=== PATIENT | male | born 1965 | race Caucasian/White ===

== ENCOUNTER 2016-11-17 12:22 | Emergency (ER) | payer MEDICAID ==
[~2016-11-17] VITALS: Ht 167.6 cm; Wt 63.0 kg
[~2016-11-17 12:22] MED LIST: OMEP20CA9 PO; RANI150T9 PO; SUCR1TAB56 PO
[2016-11-17 12:34] VITALS: Ht 167.6 cm; Wt 63.0 kg
--- NOTE | 2016-11-17 14:23 | RADRPT ---
PROCEDURE: XR Chest. CLINICAL INDICATION: chest pain TECHNIQUE: Single frontal view of the chest was obtained COMPARISON: 03/21/2015 FINDINGS: The heart and mediastinum are within normal limits. The lungs are clear. There is no pleural effusion or pneumothorax. RPTAT: AA IMPRESSION: No acute disease. .Tim Oleary MD, MD Date Time Electronically viewed and signed by .Tim Oleary MD, on 11/17/2016 14:23 .S/
[2016-11-17 14:29] LABS: ADD SCAN DIFF NO
[2016-11-17 14:31] LABS: BASOPHIL # 0.1 10^3/ul (0.0-0.1); BASOPHILS % 0.5 % (0.0-2.0); EOSINOPHILS # 0.1 10^3/ul (0.0-0.5); HEMATOCRIT 46.5 % (42.0-52.0); HEMOGLOBIN 15.4 g/dl (14.0-18.0); LYMPHOCYTES # 2.5 10^3/ul (0.8-2.9); LYMPHOCYTES % 27.4 % (15.0-51.0); MEAN CORPUSCULAR HEMOGLOBIN 27.1 pg (29.0-33.0); MEAN CORPUSCULAR HGB CONC 33.1 g/dl (32.0-37.0); MEAN CORPUSCULAR VOLUME 81.9 fl (82.0-101.0); MEAN PLATELET VOLUME 11.2 fl (7.4-10.4); MONOCYTE # 0.5 10^3/ul (0.3-0.9); MONOCYTES % 5.4 % (0.0-11.0); NEUTROPHILS % 65.5 % (39.0-77.0); PLATELET COUNT 256 10^3/UL (140-415); RED BLOOD COUNT 5.68 10^6/ul (4.70-6.10); RED CELL DISTRIBUTION WIDTH 12.6 % (11.5-14.5); WHITE BLOOD COUNT 9.1 10^3/ul (4.8-10.8)
[2016-11-17 14:38] LABS: ADD UMIC NO; URINE BILIRUBIN (Dip) NEGATIVE (NEGATIVE); URINE BLOOD (Dip) NEGATIVE (NEGATIVE); URINE COLOR LT. YELLOW (YELLOW); URINE GLUCOSE (Dip) NEGATIVE (NEGATIVE); URINE KETONES (Dip) NEGATIVE (NEGATIVE); URINE LEUKOCYTE ESTERASE (Dip) NEGATIVE (NEGATIVE); URINE NITRITE (Dip) NEGATIVE (NEGATIVE); URINE TOTAL PROTEIN (Dip) NEGATIVE (NEGATIVE); URINE UROBILINOGEN (Dip) 0.2 E.U./dL (0.1-1.0)
[2016-11-17 14:41] LABS: ALBUMIN 4.9 g/dl (3.3-4.9)
[2016-11-17 14:42] LABS: POTASSIUM 4.1 mmol/L (3.5-5.1)
[2016-11-17 14:44] LABS: ALBUMIN/GLOBULIN RATIO 1.48; BILIRUBIN,INDIRECT 0.5 mg/dl (0-1.1); BILIRUBIN,TOTAL 0.5 mg/dl (0.2-1.3); CREATININE 0.81 mg/dl (0.61-1.24); TOTAL PROTEIN 8.2 g/dl (6.1-8.1)
[2016-11-17 14:45] LABS: CALCIUM 9.7 mg/dl (8.4-10.2)
[2016-11-17] MEDS ORDERED: SOD CHLORIDE 0.9% 100 ML ONE (15:31)
[2016-11-17] MEDS ORDERED: IOHEXOL 300MG/ML 150 ML BTL ONE (15:31)
--- NOTE | 2016-11-17 16:18 | RADRPT ---
PROCEDURE: CT Abdomen and pelvis with contrast. CLINICAL INDICATION: Lower abdominal pain. No appetite for 1 month. TECHNIQUE: CT scan of the abdomen and pelvis with contrast was performed on a multidetector high-r esolution CT scan. The patient was scanned following the uncomplicated intravenous administration o f 100 ml Omnipaque-300. Coronal and sagittal reformatted images were obtained from the axial source images. Standard CT of the abdomen pelvis with contrast protocols were performed. The total exam CTDI equals 5.83 mGy and the total exam DLP equals 315.23 mGy-cm. One or more of the following dose reduction techniques were used: - Automated exposure control. - Adjustment of the mA and/or kV according to patient size. Use of iterative reconstruction technique. COMPARISON: Abdominal ultrasound 03/21/2015 FINDINGS: The stomach is unremarkable. There are diffuse fluid filled prominent loops of small bowel with mil d wall thickening consistent with enteritis. The colon is unremarkable. The appendix is unremarkabl e. Negative for intra-abdominal free air, free fluid, abscesses or lymphadenopathy. The liver spleen pancreas adrenal glands and kidneys are normal in size configuration without focal lesions. No evidence of hydronephrosis bilaterally. The gallbladder is unremarkable. No evidence of biliary ductal dilation. The urinary bladder is unremarkable. The aorta is unremarkable. Sclerotic densities within the right left femoral heads are consistent w ith bone islands. There are degenerative changes involving the lower thoracic and lumbar spine. Th ere are no acute osseous findings are osteoblastic/osteolytic lesions. There is a 5.5 mm soft pulmo nary nodule in the posterior lateral left lower lobe that is nonspecific. A CT scan of the chest wi thout contrast may be helpful for further evaluation. Remainder the lung bases are unremarkable. IMPRESSION: 1. Diffuse fluid filled prominent loops of small bowel with mild wall thickening and rule out ente ritis. There is no bowel obstruction. No CT evidence of diverticulitis or appendicitis. 2. Negative for intra-abdominal free air, free fluid, abscesses or lymphadenopathy. 3. Non-flow calcified renal calculi or obstructive uropathy. 4. 5.5 mm soft pulmonary nodule in the posterior lateral left lower lobe that is nonspecific. A CT scan of the chest without contrast may be helpful for further evaluation. RPTAT:AAJJ Elena Ponce, Physician Date Time Electronically viewed and signed by Elena Ponce Physician on 11/17/2016 16:18 BM/
[2016-11-17] MEDS ORDERED: CIPR500T4 PO (16:24)
[2016-11-17] MEDS ORDERED: METR500T PO (16:24)
[2016-11-17] MEDS ORDERED: OMEP20CA16 PO (16:25)
--- NOTE | 2016-11-17 16:31 | ERD ---
ER Documentation Chief Complaint Date/Time DATE: 11/17/16 TIME: 16:27 Chief Complaint WEAKNESS X 1 MONTH, INSOMINA AND LOSS OF APPETITE HPI This 51-year-old male presents with sensation weakness for last month and possible weight loss for last 6 months. Seen here 5 months ago diagnosed with gastritis. He denies any vomiting or fevers or blood. He has decreased appetite. States that his loss possibly 50 pounds in the last 6 months. Review of the medical record shows that he is 4 kg less than he was 5 months ago. Denies any cough, sore throat, urinary complaints polyuria or polydipsia. ROS All systems reviewed and are negative except as per history of present illness. Medications Home Meds Active Scripts Omeprazole* (Omeprazole*) 20 Mg Capsule., 20 MG PO DAILY, #30 CAP Prov:DEMETRIA BOB MD 11/17/16 Ciprofloxacin Hcl* (Ciprofloxacin Hcl*) 500 Mg Tablet, 500 MG PO BID, #14 TAB Prov:DEMETRIA BOB MD 11/17/16 Metronidazole* (Flagyl*) 500 Mg Tablet, 500 MG PO BID for 7 Days, TAB Prov:DEMETRIA BOB MD 11/17/16 Sucralfate* (Carafate*) 1 Gm Tab, 1 GM PO QID, #30 TAB Prov:HERBERT NATARAJAN PA-C 03/21/15 Ranitidine Hcl* (Zantac*) 150 Mg Tablet, 150 MG PO BID Y for PAIN, #30 TAB Prov:HERBERT NATARAJAN PA-C 03/21/15 Omeprazole* (Prilosec*) 20 Mg Capsule., 20 MG PO BID, #30 CAP Prov:HERBERT NATARAJAN PA-C 03/21/15 Allergies Allergies: Coded Allergies: No Known Allergy (Unverified , 03/21/15) PMhx/Soc History of Surgery: No Anesthesia Reaction: No Hx Neurological Disorder: No Hx Respiratory Disorders: No Hx Cardiac Disorders: No Hx Psychiatric Problems: No Hx Miscellaneous Medical Probl: No Hx Alcohol Use: No Hx Substance Use: No Hx Tobacco Use: Yes Smoking Status: Current every day smoker Physical Exam Vitals Vital Signs Date Time Temp Pulse Resp B/P Pulse Ox O2 Delivery O2 Flow Rate FiO2 11/17/16 12:34 97.7 78 18 140/86 98 Physical Exam Const: [] Alert, slightly cachectic appearing Head: Atraumatic Eyes: Normal Conjunctiva ENT: Normal External Ears, Nose and Mouth. Neck: Full range of motion..~ No meningismus. Resp: Clear to auscultation bilaterally Cardio: Regular rate and rhythm, no murmurs Abd: Soft, non tender, non distended. Normal bowel sounds Skin: No petechiae or rashes Back: No midline or flank tenderness Ext: No cyanosis, or edema Neur: Awake and alert Psych: Normal Mood and Affect Result Diagram: 11/17/16 1420 11/17/16 1420 Results 24 hrs Laboratory Tests Test 11/17/16 14:05 11/17/16 14:20 Urine Color LT. YELLOW Urine Clarity CLEAR Urine pH 6.0 Urine Specific [place] 1.015 Urine Ketones NEGATIVE Urine Nitrite NEGATIVE Urine Bilirubin NEGATIVE Urine Urobilinogen 0.2 E.U./dL Urine Leukocyte Esterase NEGATIVE Urine Hemoglobin NEGATIVE Urine Glucose NEGATIVE% Urine Total Protein NEGATIVE White Blood Count 9.110^3/ul Red Blood Count 5.6810^6/ul Hemoglobin 15.4g/dl Hematocrit 46.5% Mean Corpuscular Volume 81.9fl Mean Corpuscular Hemoglobin 27.1pg Mean Corpuscular Hemoglobin Concent 33.1g/dl Red Cell Distribution Width 12.6% Platelet Count 91193^3/UL Mean Platelet Volume 11.2fl Neutrophils % 65.5% Lymphocytes % 27.4% Monocytes % 5.4% Eosinophils % 1.0% Basophils % 0.5% Nucleated Red Blood Cells % 0.0/100WBC Neutrophils # 6.010^3/ul Lymphocytes # 2.510^3/ul Monocytes # 0.510^3/ul Eosinophils # 0.110^3/ul Basophils # 0.110^3/ul Nucleated Red Blood Cells # 0.010^3/ul Sodium Level 141mmol/L Potassium Level 4.1mmol/L Chloride Level 102mmol/L Carbon Dioxide Level 26mmol/L Anion Gap 17 Blood Urea Nitrogen 11mg/dl Creatinine 0.81mg/dl Glucose Level 107mg/dl Calcium Level 9.7mg/dl Total Bilirubin 0.5mg/dl Direct Bilirubin 0.00mg/dl Indirect Bilirubin 0.5mg/dl Aspartate Amino Transf (AST/SGOT) 28IU/L Alanine Aminotransferase (ALT/SGPT) 35IU/L Alkaline Phosphatase 67IU/L Total Protein 8.2g/dl Albumin 4.9g/dl Globulin 3.30g/dl Albumin/Globulin Ratio 1.48 Lipase 52U/L Current Medications Medications (Trade) Dose Ordered Sig/Crys Route PRN Reason Start Time Stop Time Status Last Admin Dose Admin IV Flush 10 ml 10 ml STK-MED ONCE .ROUTE 11/17/16 15:31 11/17/16 15:32 DC 11/17/16 15:53 Sodium Chloride (NS) 100 ml @ ud STK-MED ONCE .ROUTE 11/17/16 15:31 11/17/16 15:32 DC 11/17/16 15:53 Iohexol (Omnipaque 300mg/ ml) 150 ml STK-MED ONCE .ROUTE 11/17/16 15:31 11/17/16 15:32 DC 11/17/16 15:53 Procedures/MDM Patient presents with nausea, decreased appetite and possible weight loss several months duration of uncertain etiology. CBC and CMP and lipase and urine are normal. Chest X-ray 1V Interpreted by me: Soft Tissue: No acute abnormalities Bones: No acute abnormalities Mediastinum/Cardiac Silhouette/Lungs: [No acute abnormalities]. Impression have a normal 1 view chest x-ray with small 5 mm calcified nodule given the uncertain cause of symptoms CT abdomen pelvis was performed which showed diffuse bowel wall thickening with air-fluid level suggestive of enteritis. No abscess or masses appreciated. Patient presents with signs and symptoms of enteritis on CT scan with normal labs. Given the uncertain cause of CT findings he was treated empirically with Flagyl and Cipro and Prilosec. Patient is advised to follow-up with gastroenterology for further evaluation and treatment. Patient return for fevers, vomiting, new worsening symptoms. Patient was also advised to see primary doctor for recheck of nodule which appears to be chronic on chest x-ray not related to symptoms. The patient was stable with no new complaints during the ER course. Clinically, there is no current evidence to suggest meningitis, sepsis, acute abdomen, pneumonia, acute coronary syndrome, pulmonary embolism, or any other emergent condition appearing to require further evaluation or hospitalization. The patient should certainly return for any new or worsening symptoms per the aftercare instructions. They should otherwise follow-up with her primary care doctor for reevaluation this week. Departure Diagnosis: Primary Impression: Gastroenteritis Additional Impressions: Acute weakness Pulmonary nodule Condition: Stable Patient Instructions: Weakness, Unk Cause Additional Instructions: SOLO EXAMINES ABNORMALES ES INFLAMMADO EN INTEDTINOS. RECOMIENDO UN SPECIALIST DE [place] PARA MAS EVALUACON. Cheque otro vez con [facility] doctor primario en el proximo mauricio or regresa para mas o nueva simptomas. DEMETRIA BOB MD Nov 17, 2016 16:31
[2016-11-17 17:06] VITALS: BP 135/80; PULSE 75; RESP 18; TEMP 97.7
== END 2016-11-17 17:07 | disposition home or self-care (01) ==
LOC: FTE 12:22
DX: K52.9 Noninfective gastroenteritis and colitis, unspecified (principal); R91.1 Solitary pulmonary nodule; F17.210 Nicotine dependence, cigarettes, uncomplicated
CPT/HCPCS: 71010; 74177; 80053; 81003; 83690; 85025; Q9967; Z7610; 36415